=== PATIENT | female | born 1990 | race Caucasian/White ===

== ENCOUNTER 2016-08-30 18:57 | Emergency (ER) ==
[2016-08-30 19:11] VITALS: BP 131/92
== END 2016-08-30 19:30 | disposition left against medical advice (07) ==
LOC: ER 18:57
DX: Z53.21 Procedure and treatment not carried out due to patient leaving prior to being seen by health care provider (principal)

== ENCOUNTER 2016-08-31 19:40 | Emergency (ER) | payer OTHER ==
--- NOTE | 2016-08-31 21:27 | ER Document Report ---
ED Medical Screen (RME) - General Stated Complaint: RIGHT FOOT PAIN Notes: 26 yo female stepped on nail yesterday. pt wearing rubber soled sneakers. + puncture to distal plantar right foot. no erythema or lymphangits. no redness to dorsal foot. Tetnus status unknown
[2016-08-31] MEDS ORDERED: DIPH/PERTUSS(ACELL)/TETANUS VAC/PF 0.5 ML SYR (>=10YO) IM ONE (21:28)
[2016-08-31] MEDS ORDERED: SULFAMETHOXAZOLE/TRIMETHOPRIM 800-160 MG TABLET PO ONE (21:48)
[2016-08-31] MEDS ORDERED: CIPROFLOXACIN HCL 500 MG TABLET PO ONE (21:49)
--- NOTE | 2016-08-31 21:53 | ER Document Report ---
HPI - HPI Patient complains to provider of: stepped on nail Pain Level: 2 Context: Patient is a 26-year-old female that comes emergency department for chief complaint of stepping on a nail yesterday, nail went through her walking shoe, patient reports some tenderness and mild swelling to the area underneath her right great toe where she stepped on the nail. Patient is not up-to-date on her tetanus. - DERM Skin Color: Normal Past Medical History - General Information source: Patient - Social History Smoking Status: Current Every Day Smoker Smoking Education Provided: Yes - <3 min Frequency of alcohol use: Social Lives with: Family Family History: Reviewed & Not Pertinent Patient has suicidal ideation: No Patient has homicidal ideation: No - Medical History Medical History: Negative Renal/ Medical History: Denies: Hx Peritoneal Dialysis Surgical Hx: Negative - Immunizations Immunizations up to date: Yes Hx Diphtheria, Pertussis, Tetanus Vaccination: Yes Vertical Provider Document - CONSTITUTIONAL General Appearance: WD/WN, No Apparent Distress - INFECTION CONTROL TRAVEL OUTSIDE OF THE [place] IN LAST 30 DAYS: No - HEENT HEENT: Atraumatic, Normal ENT Exam, Normocephalic - NECK Neck: Normal Inspection - RESPIRATORY Respiratory: Breath Sounds Normal, No Respiratory Distress - CARDIOVASCULAR Cardiovascular: Regular Rate, Regular Rhythm - GI/ABDOMEN Gastrointestinal: Abdomen Soft, Abdomen Non-Tender - BACK Back: Normal Inspection - MUSCULOSKELETAL/EXTREMETIES Musculoskeletal/Extremeties: MAEW, FROM, Tender - There is tenderness over the plantar aspect of the first and second MTP joints of the right foot, mild tenderness and erythema at a tiny penetration area, otherwise no abnormalities noted Course - Re-evaluation Re-evalutation: Small penetrating foot wound with very mild erythema, no significant swelling, there is tenderness to the area. No other abnormalities noted. X-rays from triage reviewed and shows no acute abnormality. Patient will be placed on Bactrim, covered for pseudomonas with Cipro, tetanus updated, discussed wound care and return precautions. Patient states understanding and agreement. - Diagnostic Test Radiology reviewed: Image reviewed, Reports reviewed Discharge - Discharge Clinical Impression: Right foot injury Qualifiers: Encounter type: initial encounter Qualified Code(s): S99.921A - Unspecified injury of right foot, initial encounter Condition: Stable Disposition: HOME, SELF-CARE Additional Instructions: Take the Bactrim and Cipro antibiotics as directed. Keep a antibiotic dressing over the wound, elevate your foot when you can. Return to the emergency department for any concerning or worsening symptoms including swelling, redness, pus drainage, fever, or any other concerning symptoms. Prescriptions: Ciprofloxacin HCl [Cipro 500 mg Tablet] 500 mg PO BID #10 tablet Sulfamethoxazole/Trimethoprim [Bactrim Ds Tablet] 1 each PO BID #14 tablet Forms: Return to Work
[2016-08-31 23:24] VITALS: BP 123/73
== END 2016-08-31 22:05 | disposition home or self-care (01) ==
LOC: ER 19:40
DX: S99.921A Unspecified injury of right foot, initial encounter (principal); W22.8XXA Striking against or struck by other objects, initial encounter; F17.210 Nicotine dependence, cigarettes, uncomplicated; Z23 Encounter for immunization
CPT/HCPCS: 90471; 90715; 99283